=== PATIENT | female | born 1950 | race Caucasian/White ===

== ENCOUNTER 2019-05-05 19:05 | Emergency (ER) | payer OTHER ==
--- OUTSIDE RECORDS SUMMARY | 2019-05-05 19:07 | XMS REPORT | Continuity of Care Document ---
:1950 Author Organization [employer] Information [employer] Care Team Providers Name Role Phone [employer] Unavailable Unavailable Problems No Data Provided for This Section Medications No Data Provided for This Section Allergies, Adverse Reactions, Alerts No Known Medication Allergies Immunizations No Data Provided for This Section Results No Data Provided for This Section Pathology Reports No Data Provided for This Section Diagnostic Reports No Data Provided for This Section Consultation Notes No Data Provided for This Section Discharge Summaries No Data Provided for This Section History and Physicals No Data Provided for This Section Vital Signs No Data Provided for This Section Encounters Location Location Encounter Encounter Reason Attending ADM DC Status Source Details Type Number For Provider Date Date Visit Outpatient [id number] VIET 08/02 Active [facility] [place] Procedures No Data Provided for This Section Assessment and Plan No Data Provided for This Section Plan of Care No Data Provided for This Section Social History No Data Provided for This Section Family History No Data Provided for This Section Advance Directives No Data Provided for This Section Functional Status No Data Provided for This Section
--- OUTSIDE RECORDS SUMMARY | 2019-05-05 19:08 | XMS REPORT ---
:1950 Author Organization [facility] Address [address] Solorzano [address] [place] [id number] Care Team Providers Name Role Phone Unavailable Unavailable Unavailable Payers Payer Name Policy Type Policy Number Effective Date Expiration Date Problems This patient has no known problems. Allergies, Adverse Reactions, Alerts Allergy Allergy Status Severity Reaction(s) Onset Inactive Treating Comments Name Type Date Date Clinician ovidio MONIQUE Active U 2018-10 00:00:0 0 Medications This patient has no known medications.
[2019-05-05] MEDS ORDERED: NA CHLORIDE 0.9% 1,000 ML ONE (20:05)
[2019-05-05 20:21] LABS: Absolute Lymphocytes (CBC) 1.8 K/uL (0.7-4.9); Basophils % 0.5 % (0-1.3); Hematocrit 43.5 % (36.0-45.0); Lymphocytes % 30.2 % (15.3-44.8); MPV 9.2 fL (7.6-11.3); Monocytes % 6.9 % (3.3-12.3); RBC Red Blood Cell Count 4.72 M/uL (3.86-4.86)
[2019-05-05] MEDS ORDERED: ONDANSETRON 4 MG/2 ML VIAL ONE ×2 (20:30→23:04)
[2019-05-05] MEDS ORDERED: MORPHINE 2 MG/ML SYR ONE (20:30)
[2019-05-05 20:37] LABS: Magnesium 1.9 mg/dL (1.8-2.4); NT PRO-BNP 109 pg/mL (<125); Troponin (Emerg Dept Use Only) < 0.02 ng/mL (0.0-0.045)
[2019-05-05 20:39] LABS: Albumin 3.3 g/dL (3.4-5.0); Bilirubin Direct 0.2 mg/dL (0-0.2); Bilirubin Total 0.6 mg/dL (0.2-1.0); Potassium 3.2 mmol/L (3.5-5.1); Protein, Total 6.7 g/dL (6.4-8.2)
--- NOTE | 2019-05-05 20:40 | RAD REPORT ---
EXAM DESCRIPTION: RAD - Chest Single View - 05/05/2019 8:19 pm CLINICAL HISTORY: Syncope, shortness of breath COMPARISON: None. TECHNIQUE: AP portable chest image was obtained 2015 hours . FINDINGS: Lung volumes are low. No mass or consolidation. No failure or volume overload suspected. H eart and vasculature are normal. No measurable pleural effusion and no pneumothorax. No acute bony ab normality seen. No acute aortic findings suspected. IMPRESSION: No acute cardiopulmonary process.
[2019-05-05 20:41] LABS: Protime INR 1.27
[2019-05-05 23:30] LABS: Urine Appearance CLEAR; Urine Bilirubin NEGATIVE (NEG); Urine Blood NEGATIVE (NEG); Urine Color YELLOW; Urine Glucose NEGATIVE (NEG); Urine Protein NEGATIVE (NEG); Urine Specific Gravity >=1.030 (1.005-1.030)
[2019-05-05 23:35] LABS: Urine Microscopic Reflex ORDER UMIC
[2019-05-05 23:47] LABS: Urine Bacteria 20-50 /HPF (<20); Urine Culture Reflex Order REFLEXED; Urine RBC NONE SEEN /HPF (NONE SEEN)
[2019-05-05 23:49] LABS: Urine Blood NEGATIVE (NEG); Urine Glucose NEGATIVE (NEG); Urine Protein NEGATIVE (NEG); Urine Specific Gravity 1.015 (1.005-1.030)
--- NOTE | 2019-05-06 00:22 | ER ---
Nurse's Notes [facility] Name: Thu Boyd Age: 68 yrs Sex: Female : 1950 Arrival Date: 05/05/2019 Time: 19:11 Bed 2 Private MD: Diagnosis: Syncope. Abdominal pain Presentation: 05/05 19:12 Presenting complaint: EMS states: EMS reports upon arrival pt's stated he heard rr5 a scream saw pt grab at her belly and then passed out and landed on the couch. reports pt did not hit head. EMS reported upon arrival pt HR was in the 40s and BP was 80s/50s. 20 G to RAC, IV fluid bolus and toradol for right lower abdominal pain was initiated by EMS. Transition of care: patient was not received from another setting of care. Onset of symptoms was May 05, 2019. Risk Assessment: Do you want to hurt yourself or someone else? Patient reports no desire to harm self or others. Initial Sepsis Screen: Does the patient meet any 2 criteria? No. Patient's initial sepsis screen is negative. Does the patient have a suspected source of infection? No. Patient's initial sepsis screen is negative. Care prior to arrival: 20 G IV to RAC, NS fluid bolus, toradol 30mg IVP. 19:12 Method Of Arrival: EMS: [facility] rr5 19:12 Acuity: HELDER 3 rr5 Triage Assessment: 19:28 General: Appears in no apparent distress. Behavior is calm, cooperative. Pain: Unable rr5 to use pain scale. FLACC scale score is 0 out of 10. Neuro: Level of Consciousness is awake, alert, obeys commands, Oriented to pt aphasic . Reinsurance Claim Analyst are equal bilaterally Moves all extremities. Facial symmetry appears normal. Respiratory: Airway is patent Respiratory effort is even, unlabored, Respiratory pattern is regular, symmetrical. Historical: - Allergies: 19:26 No Known Allergies; rr5 - Home Meds: 19:26 Eliquis oral oral [Active]; "mild statin" [Active]; Prozac Oral [Active]; rr5 - PMHx: 19:26 stroke in 2018; Hypertension; Hyperlipidemia; dysphagia; rr5 - Immunization history:: Adult Immunizations up to date. - Social history:: Smoking status: Patient/guardian denies using tobacco. - Ebola Screening: : No symptoms or risks identified at this time. Screenin:27 Abuse screen: Denies threats or abuse. Nutritional screening: No deficits noted. rr5 Tuberculosis screening: No symptoms or risk factors identified. Fall Risk IV access (20 points). Assessment: 19:41 General: Appears uncomfortable, Behavior is calm, cooperative, quiet. Pain: Complains ea of pain in right lower quadrant. Neuro: Level of Consciousness is awake, alert, obeys commands, Oriented to person, place, time, situation, Reinsurance Claim Analyst are equal bilaterally Moves all extremities. Facial symmetry appears normal. Cardiovascular: Heart tones S1 S2 present Patient's skin is warm and dry. Rhythm is sinus rhythm. Respiratory: Airway is patent Respiratory effort is even, unlabored, Respiratory pattern is regular, symmetrical. GI: Parent/caregiver reports the patient having reports pt has constipation. Derm: Skin is pink, warm \\T\\ dry. 20:50 Reassessment: Patient and/or family updated on plan of care and expected duration. Pain ea level reassessed. Pt resting with eyes closed. Respirations even and unlabored. No s/s of pain or discomfort noted at this time. 22:50 Reassessment: complaints of feeling nauseated. ED provider aware with order made and rr5 carried out. 05/06 00:03 Reassessment: Patient and/or family updated on plan of care and expected duration. Pain ea level reassessed. Awaiting on CT results. 00:28 Reassessment: Patient and/or family updated on plan of care and expected duration. Pain ea level reassessed. Pt awake and alert. Respirations even and unlabored. Chest expansions even and symmetrical. No s/s of pain or discomfort noted at this time. Discharge instruction given to patient's , verbalized the understanding of instruction. Pt left ED via wheelchair with , pt tolerating well. Vital Signs: 05/05 19:27 BP 145 / 63; Pulse 60; Resp 17; Temp 97.7; Pulse Ox 95% ; Weight 81.65 kg; Height 5 ft. rr5 2 in. (157.48 cm); Pain 0/10; 20:30 BP 129 / 60; Pulse 54; Resp 18; Pulse Ox 95% on R/A; ea 21:18 BP 119 / 60; Pulse 58; Resp 18; Pulse Ox 93% ; ea 22:00 BP 125 / 65; Pulse 50; Resp 18; Pulse Ox 96% on R/A; ea 23:00 BP 129 / 57; Pulse 52; Resp 17; Pulse Ox 97% ; rr5 07 00:02 BP 119 / 58; Pulse 63; Resp 16; Pulse Ox 96% ; ea 00:15 BP 121 / 60; Pulse 55; Resp 18; Temp 98; Pulse Ox 98% on R/A; Pain 0/10; ea 05/05 19:27 Body Mass Index 32.92 (81.65 kg, 157.48 cm) rr5 ED Course: 05/05 19:11 Patient arrived in ED. rr5 19:19 Triage completed. rr5 19:28 Patient has correct armband on for positive identification. Bed in low position. Call rr5 light in reach. Side rails up X2. 19:28 Arm band placed on right wrist. Patient placed in an exam room, on a stretcher, on rr5 pulse oximetry. 19:31 Tom Jacobs MD is Attending Physician. pkl 19:34 Teressa Esposito RN is Primary Nurse. ea 20:21 XRAY Chest (1 view) In Process Unspecified. EDMS 22:[address] nj 22:24 CT Head Brain wo Cont In Process Unspecified. EDMS 22:27 CT Abd/Pelvis - PO and IV Contrast In Process Unspecified. EDMS 07 00:30 No provider procedures requiring assistance completed. IV discontinued, intact, ea bleeding controlled, No redness/swelling at site. Pressure dressing applied. Administered Medications: 05/05 19:58 Drug: NS 0.9% 1000 ml Route: IV; Rate: 100 ml/hr; Site: right antecubital; ea 05/06 00:25 Follow up: Response: No adverse reaction; IV Status: Completed infusion; IV Intake: ea 400ml 05/05 20:24 Drug: Zofran 4 mg Route: IVP; Site: right antecubital; ea 21:21 Follow up: Response: No adverse reaction; Marked relief of symptoms ea 20:26 Drug: morphine 2 mg Route: IVP; Site: right antecubital; ea 21:21 Follow up: Response: No adverse reaction; Pain is decreased ea 22:55 Drug: Zofran 4 mg Route: IVP; Site: right antecubital; rr5 07/06 00:06 Follow up: Response: No adverse reaction; Nausea is decreased ea 00:21 Drug: Potassium Chloride 40 mEq Route: PO; ea 00:33 Follow up: Response: Medication administered at discharge. ea Point of Care Testing: Blood Glucose: 05/05 19:43 Blood Glucose: 138 mg/dL; ea Ranges: Intake: 05/06 00:25 IV: 400ml; Total: 400ml. ea Outcome: 00:19 Discharge ordered by . jael 00:31 Discharged to home via wheelchair, with significant other. ea 00:31 Condition: stable 00:31 Discharge instructions given to family, Instructed on discharge instructions, follow up and referral plans. Demonstrated understanding of instructions, follow-up care. 00:32 Patient left the ED. ea Signatures: Dispatcher [employer] EDTom Scott MD MD pkl Jordan, Nathan nj Antunez, Elena RN RN Dakota Kirby RN RN rr5
--- NOTE | 2019-05-06 00:24 | EDPHYS ---
Physician Documentation [facility] Name: Thu Boyd Age: 68 yrs Sex: Female : 1950 Arrival Date: 05/05/2019 Time: 19:11 Bed 2 Private MD: ED Physician Tom Jacobs HPI: 05/05 19:46 This 68 yrs old Female presents to ER via EMS with complaints of Syncope. pkl 19:46 The patient has experienced syncope, became unresponsive. Onset: The symptoms/episode pkl began/occurred just prior to arrival. Associated injury: The patient did not suffer any apparent associated injury. Associated signs and symptoms: Pertinent positives: abdominal pain. Patient complained of right lower quadrant pain since this morning. said patient screamed and grab her right lower quadrant before passing out for about 10 mins. Patient has residual aphasia from previous stroke in 2017. Historical: - Allergies: 19:26 No Known Allergies; rr5 - Home Meds: 19:26 Eliquis oral oral [Active]; "mild statin" [Active]; Prozac Oral [Active]; rr5 - PMHx: 19:26 stroke in 2018; Hypertension; Hyperlipidemia; dysphagia; rr5 - Immunization history:: Adult Immunizations up to date. - Social history:: Smoking status: Patient/guardian denies using tobacco. - Ebola Screening: : No symptoms or risks identified at this time. ROS: 19:46 Eyes: Negative for injury, pain, redness, and discharge, ENT: Negative for injury, pkl pain, and discharge, Neck: Negative for injury, pain, and swelling, Cardiovascular: Negative for chest pain, palpitations, and edema, Respiratory: Negative for shortness of breath, cough, wheezing, and pleuritic chest pain. 19:46 Abdomen/GI: Positive for abdominal pain, of the right lower quadrant. 19:46 Back: Negative for acute changes. 19:46 : Negative for urinary symptoms. 19:46 MS/extremity: Negative for acute changes. 19:46 Skin: Negative for rash. 19:46 Neuro: Positive for syncope. Exam: 19:46 Abdomen/GI: Bowel sounds: normal, Palpation: soft, moderate abdominal tenderness, in pkl the right lower quadrant. 19:46 Head/Face: Normocephalic, atraumatic. Eyes: Pupils equal round and reactive to light, extra-ocular motions intact. Lids and lashes normal. Conjunctiva and sclera are non-icteric and not injected. Cornea within normal limits. Periorbital areas with no swelling, redness, or edema. ENT: Nares patent. No nasal discharge, no septal abnormalities noted. Tympanic membranes are normal and external auditory canals are clear. Oropharynx with no redness, swelling, or masses, exudates, or evidence of obstruction, uvula midline. Mucous membranes moist. Neck: Trachea midline, no thyromegaly or masses palpated, and no cervical lymphadenopathy. Supple, full range of motion without nuchal rigidity, or vertebral point tenderness. No Meningismus. Chest/axilla: Normal chest wall appearance and motion. Nontender with no deformity. No lesions are appreciated. Cardiovascular: Regular rate and rhythm with a normal S1 and S2. No gallops, murmurs, or rubs. Normal PMI, no JVD. No pulse deficits. Respiratory: Lungs have equal breath sounds bilaterally, clear to auscultation and percussion. No rales, rhonchi or wheezes noted. No increased work of breathing, no retractions or nasal flaring. Back: No spinal tenderness. No costovertebral tenderness. Full range of motion. Skin: Warm, dry with normal turgor. Normal color with no rashes, no lesions, and no evidence of cellulitis. MS/ Extremity: Pulses equal, no cyanosis. Neurovascular intact. Full, normal range of motion. 19:46 Neuro: Orientation: appropriate for stated age, Mentation: is normal, Cranial nerves: grossly normal, Motor: moves all fours. Vital Signs: 19:27 BP 145 / 63; Pulse 60; Resp 17; Temp 97.7; Pulse Ox 95% ; Weight 81.65 kg; Height 5 ft. rr5 2 in. (157.48 cm); Pain 0/10; 20:30 BP 129 / 60; Pulse 54; Resp 18; Pulse Ox 95% on R/A; ea 21:18 BP 119 / 60; Pulse 58; Resp 18; Pulse Ox 93% ; ea 22:00 BP 125 / 65; Pulse 50; Resp 18; Pulse Ox 96% on R/A; ea 23:00 BP 129 / 57; Pulse 52; Resp 17; Pulse Ox 97% ; rr5 07/06 00:02 BP 119 / 58; Pulse 63; Resp 16; Pulse Ox 96% ; ea 00:15 BP 121 / 60; Pulse 55; Resp 18; Temp 98; Pulse Ox 98% on R/A; Pain 0/10; ea 05/05 19:27 Body Mass Index 32.92 (81.65 kg, 157.48 cm) rr5 MDM: 05/05 19:31 Patient medically screened. pkl 05/06 00:14 Data reviewed: vital signs, nurses notes, lab test result(s), EKG, radiologic studies, pkl CT scan, plain films. ED course: Discussed lab. and CT Scans results with patient and . Patient feeling better. Advised to follow up with her PCP and [facility] in 2 to 3 days. Advised to return if necessary. Patient and understood instructions. 05/05 19:34 Order name: Basic Metabolic Panel 05/05 19:34 Order name: CBC with Diff; Complete Time: 00:08 05/05 19:34 Order name: Creatinine for Radiology; Complete Time: 00:08 05/05 19:34 Order name: Hepatic Function; Complete Time: 00:08 05/05 19:34 Order name: Lipase; Complete Time: 00:08 05/05 19:44 Order name: Magnesium; Complete Time: 00:08 pk 05/05 19:44 Order name: NT PRO-BNP; Complete Time: 00:08 pk 05/05 19:44 Order name: PT-INR; Complete Time: 00:08 pk 05/05 19:44 Order name: Troponin (emerg Dept Use Only); Complete Time: 00:08 pk 05/05 20:01 Order name: Basic Metabolic Panel; Complete Time: 00:08 EDNY 05/05 20:04 Order name: UA; Complete Time: 00:08 pk 05/05 23:37 Order name: Urine Microscopic Only; Complete Time: 00:08 EDNY 05/05 23:38 Order name: Urine Dipstick--Ancillary (enter results); Complete Time: 00:08 cm6 05/05 23:49 Order name: Urine Culture [facility] 05/05 19:34 Order name: IV Saline Lock; Complete Time: 23:33 ea 05/05 19:34 Order name: Labs collected and sent; Complete Time: 23:33 05/05 19:44 Order name: XRAY Chest (1 view); Complete Time: 00:08 pkl 05/05 19:44 Order name: EKG; Complete Time: 20:05 pkl 05/05 19:44 Order name: Cardiac monitoring; Complete Time: 19:47 pkl 05/05 19:44 Order name: EKG - Nurse/Tech; Complete Time: 19:47 pkl 05/05 19:44 Order name: O2 Per Protocol; Complete Time: 19:47 pkl 05/05 19:44 Order name: O2 Sat Monitoring; Complete Time: 19:47 pkl 05/05 19:45 Order name: CT Abd/Pelvis - PO and IV Contrast pkl 05/05 19:45 Order name: CT Head Brain wo Cont pkl Administered Medications: 05/05 19:58 Drug: NS 0.9% 1000 ml Route: IV; Rate: 100 ml/hr; Site: right antecubital; ea 05/06 00:25 Follow up: Response: No adverse reaction; IV Status: Completed infusion; IV Intake: ea 400ml 05/05 20:24 Drug: Zofran 4 mg Route: IVP; Site: right antecubital; ea 21:21 Follow up: Response: No adverse reaction; Marked relief of symptoms ea 20:26 Drug: morphine 2 mg Route: IVP; Site: right antecubital; ea 21:21 Follow up: Response: No adverse reaction; Pain is decreased ea 22:55 Drug: Zofran 4 mg Route: IVP; Site: right antecubital; rr5 05/06 00:06 Follow up: Response: No adverse reaction; Nausea is decreased ea 00:21 Drug: Potassium Chloride 40 mEq Route: PO; ea 00:33 Follow up: Response: Medication administered at discharge. ea Point of Care Testing: Blood Glucose: 05/05 19:43 Blood Glucose: 138 mg/dL; ea Ranges: Critical Glucose Levels:Adult <50 mg/dl or >400 mg/dl <40 mg/dl or >180 mg/dl Disposition: 05/06/19 00:19 Discharged to Home. Impression: Syncope. Abdominal pain. - Condition is Stable. - Medication Reconciliation Form, Thank You Letter, Antibiotic Education, Prescription Opioid Use form. - Follow up: Private Physician; When: 2 - 3 days; Reason: Re-evaluation by your physician. - Problem is new. - Symptoms have improved. Signatures: Dispatcher [employer] Tom Schroeder MD MD pkl Teressa Esposito, RN RN Dakota Kirby RN RN rr5 Corrections: (The following items were deleted from the chart) 05/06 00:32 00:19 05/06/2019 00:19 Discharged to Home. Impression: Syncope. Abdominal pain. ea Condition is Stable. Forms are Medication Reconciliation Form, Thank You Letter, Antibiotic Education, Prescription Opioid Use. Follow up: Private Physician; When: 2 - 3 days; Reason: Re-evaluation by your physician. Problem is new. Symptoms have improved. pkl
[2019-05-06] MEDS ORDERED: POTASSIUM CL SA 10 MEQ TAB PO ONE (00:31)
--- NOTE | 2019-05-06 07:19 | EKG ---
Test Date: 2019-05-05 Test Time: 19:14:48 Motor Vehicle Examiner: QUENTIN MEASUREMENT RESULTS: Intervals: Rate: 60 MD: 202 QRSD: 86 QT: 408 QTc: 408 [place]: P: -11 MD: 202 QRS: 22 T: 25 INTERPRETIVE STATEMENTS: Normal sinus rhythm with sinus arrhythmia Normal ECG No previous ECG available for comparison Electronically Signed On 05-06-19 07:18:26 CDT by Bryson Cuellar
--- NOTE | 2019-05-08 12:31 | RAD REPORT ---
EXAM DESCRIPTION: Head Brain Wo Cont CLINICAL HISTORY: 68 years Female SYNCOPE COMPARISON: None TECHNIQUE: Images were obtained in axial, sagittal, and coronal planes. This exam was performed according to our departmental dose-optimization program which includes use of Automated Exposure Control, adjustment of the mA and/or kV according to patient size and/or use of i terative reconstruction technique. FINDINGS: Wedge-shaped decreased attenuation left frontal temporal region consistent with more remot e infarct and encephalomalacia. Additional wedge-shaped decreased attenuation left posterior parietal lobe also consistent with more remote infarct and encephalomalacia. Compensatory enlargement left la teral ventricle. No abnormal areas of increased attenuation seen. No extra-axial fluid collections noted. Hyperostosis frontalis. Unremarkable paranasal sinuses. No evidence for skull fracture. Symmetric aer ation mastoid air cells bilaterally. IMPRESSION: More remote infarct and encephalomalacia left frontal temporal and posterior parietal re gions. No acute intracranial abnormality. No evidence for hemorrhage, mass lesion, or large acute infarction . Electronically signed by: Tana Joseph MD 05/05/2019 10:30 PM CDT Due to temporary technical issues with the PACS/Fluency reporting system, reports are being signed by the in house radiologist as a courtesy to ensure prompt reporting. The interpreting radiologist is f ully responsible for the content of the report.
--- NOTE | 2019-05-08 12:33 | RAD REPORT ---
EXAM DESCRIPTION: Abdomen Pelvis W Contrast CLINICAL HISTORY: Abdominal pain TECHNIQUE: CT scan of the abdomen and pelvis was performed with oral and intravenous contrast. 5 mm axial images were obtained along with coronal and sagittal reformatted images. DOSE OPTIMIZATION: This facility uses dose optimization techniques as appropriate to perform exams, including at least one of the following techniques: 1. Automated exposure control. 2. Adjustment of the mA and/or kV according to patient size (this includes techniques or standardized protocols for targeted exams where dose is matched to the indication/reason for exam, i.e. extremiti es or head). 3. Use of iterative reconstructive technique. INTRAVENOUS CONTRAST: Not documented ORAL CONTRAST: Not documented. COMPARISON: None. FINDINGS: Lung Bases: There is mild bibasilar atelectasis. Liver: There is mild intrahepatic and extrahepatic biliary ductal dilatation associated with previous cholecystectomy. Spleen: Normal. Pancreas: Normal. Gallbladder: Absent Adrenal Glands: Normal. Kidneys: Normal. Retroperitoneal Structures: There is moderately severe atherosclerotic disease about the abdominal ao rta and iliac arteries. Bowel Survey: There is a moderate amount residual stool within the ascending, transverse, and sigmoid colon. The distal ileum is unremarkable. The appendix is unremarkable.. There is moderately severe k yphosis of the sigmoid colon. Uterus and Adnexa: Absent Urinary Bladder: Obscured by beam hardening artifact associated with hardening artifact associated bi lateral hip prosthesis Peritoneal Cavity: Normal. Mesenteric Structures: Normal. Abdominal Wall: No hernia. Bony Structures: No suspicious lesions. IMPRESSION: 1. Moderate amount of residual stool within the ascending, transverse, and sigmoid colon . PQRS: [id number] Electronically signed by: Marcello Iqbal MD 05/05/2019 11:22 PM CDT Due to temporary technical issues with the PACS/Fluency reporting system, reports are being signed by the in house radiologist as a courtesy to ensure prompt reporting. The interpreting radiologist is f ully responsible for the content of the report.
== END 2019-05-06 00:32 | disposition home or self-care (01) ==
LOC: ER 19:05
DX: R55 Syncope and collapse (principal); R10.9 Unspecified abdominal pain; I10 Essential (primary) hypertension; E78.5 Hyperlipidemia, unspecified; Z79.01 Long term (current) use of anticoagulants
CPT/HCPCS: 96361; 93005; 87088; 85025; 87086; 80048; 36415; 83735; 85610; 82962; 80076; 84484; 83690; 83880; 70450; 74177; 71045; 96375; 96374; 99285; Q9967; J2270; J7030; J2405 ×2; 81003; 81015

== ENCOUNTER 2019-05-08 17:50 | Emergency (ER) | payer OTHER ==
--- OUTSIDE RECORDS SUMMARY | 2019-05-08 17:54 | XMS REPORT | Continuity of Care Document ---
:1950 Author Organization [employer] Information [employer] Care Team Providers Name Role Phone [employer] Unavailable Unavailable Problems No Data Provided for [...] Number For Provider Date Date Visit Outpatient [id number] VIET 08/02 Active [facility] [place] Procedures No Data Provided for This Section [...]
--- OUTSIDE RECORDS SUMMARY | 2019-05-08 17:54 | XMS REPORT ---
:1950 [facility] Address [address] Solorzano [address] [place] [id number] Care Team Providers Name Role Phone Unavailable [...]
[2019-05-08 18:16] LABS: Absolute Lymphocytes (CBC) 2.1 K/uL (0.7-4.9); Basophils % 0.6 % (0-1.3); Eosinophils % 2.6 % (0-4.4); Hematocrit 45.7 % (36.0-45.0); Lymphocytes % 31.8 % (15.3-44.8); MPV 9.1 fL (7.6-11.3); Monocytes % 6.1 % (3.3-12.3); RBC Red Blood Cell Count 4.97 M/uL (3.86-4.86)
--- NOTE | 2019-05-08 18:18 | RAD REPORT ---
EXAM DESCRIPTION: CT - Ct Stroke Brain Wo Cont - 05/08/2019 6:10 pm CLINICAL HISTORY: aphasia COMPARISON: May 05, 2019 TECHNIQUE: Computed axial tomography of the head was obtained. All CT scans are performed using dose optimization technique as appropriate and may include automated exposure control or mA/KV adjustment according to patient size. FINDINGS: An intracranial bleed is not seen . The ventricles are normal in caliber. No extra-axial fluid collection is noted. Large area of cystic encephalomalacia involves the left cerebrum consistent with old infarction Fluid within the sinuses/ mastoids is not seen. IMPRESSION: No acute intracranial abnormality is seen. If patient's symptoms persist MRI of the bra in would be recommended. Dr Ac of the emergency room was notified at 6:10 p.m. May 08, 2019
[2019-05-08 18:19] LABS: Protime INR 1.2
[2019-05-08 18:33] LABS: BUN Blood Urea Nitrogen 17 mg/dL (7-18); Bicarbonate 28 mmol/L (21-32); Glucose Level 132 mg/dL (74-106); Potassium 3.2 mmol/L (3.5-5.1); Sodium Level 140 mmol/L (136-145); Troponin (Emerg Dept Use Only) < 0.02 ng/mL (0.0-0.045)
[2019-05-08] MEDS ORDERED: LORazepam 2 MG/ML VIAL ONE ×2 (18:44→19:48)
[2019-05-08] MEDS ORDERED: LEVETIRACETAM 500 MG/5 ML VIAL IV ONE (18:57)
[2019-05-08] MEDS ORDERED: NA CHLORIDE 0.9% 100 ML IV ONE (18:57)
--- NOTE | 2019-05-08 19:55 | RAD REPORT ---
EXAM DESCRIPTION: Colten Angio05/08/2019 7:43 pm CLINICAL HISTORY: cva COMPARISON: None TECHNIQUE: 50 cc Isovue 370 was administered intravenously. 3D MIP reconstruction performed All CT scans are performed using dose optimization technique as appropriate and may include automated exposure control or mA/KV adjustment according to patient size. FINDINGS: Mild plaque is present within the internal carotid arteries bilaterally. Common carotid a nd external carotid arteries unremarkable. Right vertebral artery is a little bit more dominant than the left. No significant stenosis Carotid and vertebral arteries are tortuous IMPRESSION: Mild stenosis within the carotid arteries NASCET criteria used. Mild 0-49% stenosis Moderate 50-69% stenosis Severe 70-99% stenosis
--- NOTE | 2019-05-08 20:01 | RAD REPORT ---
EXAM DESCRIPTION: CTHead angio05/08/2019 7:42 pm CLINICAL HISTORY: CVA COMPARISON: None TECHNIQUE: CT angiogram of the head was obtained. 3D MIPS reconstruction performed. All CT scans are performed using dose optimization technique as appropriate and may include automated exposure control or mA/KV adjustment according to patient size. FINDINGS: The basilar, internal carotid, anterior cerebral, right middle cerebral and posterior cere bral arteries are normal caliber. An aneurysm is not seen. origin left posterior cerebral artery Diminished flow within left middle cerebral arterial branches IMPRESSION: Diminished flow within the left middle cerebral arterial branches related to old infarct ion No acute abnormality seen
--- NOTE | 2019-05-08 20:02 | RAD REPORT ---
EXAM DESCRIPTION: [place] Single View05/08/2019 7:01 pm CLINICAL HISTORY: Chest pain COMPARISON: May 05, 2019 FINDINGS: Patient is in a poor degree of inspiration resulting in crowding of the pulmonary vessels Lungs probably are clear of acute infiltrate Heart is normal size
--- NOTE | 2019-05-08 20:20 | ER ---
Nurse's Notes [facility] Name: Thu Boyd Age: 68 yrs Sex: Female : 1950 Arrival Date: 05/08/2019 Time: 18:03 Bed 14 Private MD: Diagnosis: Epilepsy and recurrent seizures;Cerebral infarction Presentation: 05/08 17:45 Presenting complaint: EMS states: reports that patient was sitting down, when ss he came back out of restroom, patient had a sudden onset of R sided weakness and was lethargic/ slumped over. Patient has a history of aphasia from previous CVA. Transition of care: patient was not received from another setting of care. An acute neurological deficit is present. The patients blood glucose was checked before arriving to the hospital and was found to be normal. Onset of symptoms was May 08, 2019 at 17:15. Risk Assessment: Do you want to hurt yourself or someone else? Unable to obtain. Initial Sepsis Screen: Does the patient meet any 2 criteria? No. Patient's initial sepsis screen is negative. Does the patient have a suspected source of infection? No. Patient's initial sepsis screen is negative. Care prior to arrival: IV initiated. 20 GA, in the right forearm, Glucose check: 106. 17:45 Method Of Arrival: EMS: [facility] 17:45 Acuity: HELDER 2 ss Triage Assessment: 18:22 The onset of the patients symptoms was May 08, 2019 at 17:15. General: Appears bp distressed, comfortable, obese, Behavior is inappropriate for age. Pain: Denies pain. EENT: No deficits noted. Neuro: Reports weakness in R SIDED DYSPHASIA AND SLURRED SPEECH. Cardiovascular: No deficits noted. Respiratory: No deficits noted. GI: No signs and/or symptoms were reported involving the gastrointestinal system. : No signs and/or symptoms were reported regarding the genitourinary system. Derm: No deficits noted. Musculoskeletal: R SIDED WEAKNESS. Stroke Activation: Symptom onset < 3 hours Physician: Stroke Attending; Name: ; Notified At: ; Arrived At: Physician: Chief Stroke Resident; Name: ; Notified At: ; Arrived At: Physician: Stroke Resident; Name: ; Notified At: ; Arrived At: Physician: ED Attending; Name: ; Notified At: ; Arrived At: Physician: ED Resident; Name: ; Notified At: ; Arrived At: Historical: - Allergies: 18:18 No Known Allergies; ss - Home Meds: 18:18 Prozac Oral [Active]; Eliquis Oral [Active]; "mild statin" [Active]; bp - PMHx: 18:18 DYSPHAGIA; Hyperlipidemia; Hypertension; stroke in 2018; Aphasia; ss - Immunization history:: Adult Immunizations up to date. - Social history:: Smoking status: Patient/guardian denies using tobacco, but has a distant history of tobacco abuse. - Ebola Screening: : Patient denies exposure to infectious person Patient denies travel to an Ebola-affected area in the 21 days before illness onset. Screenin:19 VAN Screening:. The patient is not alert, or is unable to follow commands. Bedside ss swallow screening discontinued. Patient kept NPO until cleared by Speech Therapy or Physician. The patient is exhibiting difficulty speaking. 18:25 Abuse screen: Denies threats or abuse. Denies injuries from another. Nutritional bp screening: No deficits noted. Tuberculosis screening: No symptoms or risk factors identified. Fall Risk No fall in past 12 months (0 pts). No secondary diagnosis (0 pts). IV access (20 points). Ambulatory Aid- None/Bed Rest/Nurse Assist (0 pts). Gait- Weak (10 pts.). Mental Status- Overestimates/Forgets Limitations (15 pts.). Total Richey Fall Scale indicates Low Risk Score (25-44 pts). Fall prevention measures have been instituted. Side Rails Up X 2 Placed close to Nursing Station Frequent Obs/Assesments occuring Family Present and informed to notify staff if they need to leave bedside As available Patient and Family Educated on Fall Prevention Program and strategies. Assessment: 17:45 Reassessment: Emelia No Called. Patient straight to CT upon arrival to ED. ss 17:45 VAN Scoring: Arm Drift: Severe drift Visual Disturbance: No visual disturbance noted. bp Aphasia: Patient exhibits both expressive and receptive aphasia. Provider notified of +VAN scoring. Neglect: No neglect noted. The patient has not been NPO before screening. The patient is not alert and/or unable to follow commands. Bedside swallow screen discontinued. Patient kept NPO until cleared by Speech Therapy or Physician. The patient failed the bedside swallow screening. The patient will be kept NPO until cleared by Speech Therapy or Physician. Provider notified of bedside swallow screening results: Teddy Ac MD. 17:45 T-PA (Activase) Screening: Indications: Definite evidence of stroke, ischemic, embolic, ss or hypertensive: Yes. Treatment will start within 4.5 hours onset of symptoms: Yes. 17:55 Reassessment: Back in exam room. Dr. Ac at bedside assessing patient. also ss at bedside who states, "It almost looked like when I got out of the room that she was trying to swallow her tongue. When I tried to pull it back out of her mouth I felt as if she was doing better. I don't know.". 17:55 Reassessment: 1745. NIHSS completed on patients own ability to perform task. Patient is ss unable to perform some tasks needed to appropriately assess NIHSS completely. 18:25 Reassessment: FULL TONIC CLONIC ACTIVITY NOTED WITH R GAZE DEVIATION. NOTIFIED AND bp AT B/S. SZ S/S LASTED \\R\\4-5 MINUTES. NRB PLACED. 18:28 Reassessment: Patient observed by Mookie Goodman RN to be having a seizure. Dr. Ac ss notified. NRB placed. 18:30 Reassessment: Ativan 1 mg administered IVP as ordered. Patient has stopped seizing and ss is observed to be post ictal at this time. BP 203/79. No new orders or interventions received at this time. Transfer to [facility] has been initiated. Family notified on plan of care. 18:46 T-PA (Activase) Screening: Indications: Treatment will start within 4.5 hours onset of bp symptoms: Yes. No evidence of intracranial hemorrhage or CT of head and no evidence of peripheral hemorrhage or recent CVA: Yes. Contraindications: Is the patient on Aspirin, Heparin, or Warfarin: No. Blood pressure is more than 185/110: Yes. Seizure at onset of stroke or other uncontrolled chronic seizure disorder: Yes. Is the patient on a "statin" medication: Yes. 19:11 General: Appears comfortable, well groomed, well nourished, Behavior is drowsy, quiet. jd3 Pain: Unable to use pain scale. Patient is disoriented. FLACC scale score is 0 out of 10. Neuro: Level of Consciousness is lethargic, post ictal, Oriented to none [employer] Supervisor are does not attempt to squeeze . post ictal state. does not attempt to raise arms. purposeful movement to rub neck noted.. Speech with expressive aphasia noted, Facial symmetry appears normal, pupils equal and reactive to light.. Seizure activity Patient is post-ictal at this time. Cardiovascular: Heart tones S1 S2 present Capillary refill < 3 seconds Patient's skin is warm and dry. Rhythm is regular. Respiratory: Airway is patent Respiratory effort is even, unlabored, Respiratory pattern is regular, symmetrical, Breath sounds are clear bilaterally. GI: Abdomen is round non-distended, obese, Bowel sounds present X 4 quads. Abd is soft and non tender X 4 quads. Patient currently denies diarrhea, nausea, vomiting. : No signs and/or symptoms were reported regarding the genitourinary system. EENT: No signs and/or symptoms were reported regarding the EENT system. Derm: Skin is intact, Skin is dry, Skin is normal, Skin temperature is warm. 19:37 Reassessment: CT reporting pt with restlessness on the CT bed. provider ordered 1 mg jd3 Ativan, See MAR. 19:45 Reassessment: pt's reported he is going home for the night. : Nicanor jacob [place]- [phone]. 19:52 Reassessment: Patient appears in no apparent distress at this time. Patient and/or [facility] family updated on plan of care and expected duration. Pain level reassessed. awaiting results of CTA and disposition. pt with even and unlabored respirations, pt is post ictal, appears drowsy. spontaneous eye opening and purposeful movement noted with rubbing neck. pt opening eyes on command. 20:43 Reassessment: Patient appears in no apparent distress at this time. No changes from jd3 previously documented assessment. Patient and/or family updated on plan of care and expected duration. Pain level reassessed. report given to Bekah OSWALD at [facility]. 20:59 Reassessment: Patient appears in no apparent distress at this time. No changes from jd3 previously documented assessment. Patient and/or family updated on plan of care and expected duration. Pain level reassessed. report given to EMS. Vital Signs: 18:03 BP 158 / 91; Pulse 87; Resp 18; Temp 97.7(TE); Pulse Ox 95% on R/A; Weight 81.65 kg; ss Height 5 ft. 2 in. (157.48 cm); 18:53 BP 184 / 115; Pulse 83; Resp 19; Pulse Ox 100% on 15% Non-rebreather mask; bp 19:27 BP 158 / 80; Pulse 72; Resp 17 S; Pulse Ox 100% on 15% Non-rebreather mask; jd3 19:58 BP 157 / 71; Pulse 71; Resp 17 S; Pulse Ox 99% on 2 lpm NC; jd3 21:00 BP 143 / 73; Pulse 71; Resp 17 S; Pulse Ox 97% on 2 lpm NC; jd3 18:03 Body Mass Index 32.92 (81.65 kg, 157.48 cm) ss [place] Coma Score: 19:25 Eye Response: to pain(2). Verbal Response: inappropriate words(3). Motor Response: jd3 localizes pain(5). Total: 10. 19:58 Eye Response: to voice(3). Verbal Response: inappropriate words(3). Motor Response: jd3 localizes pain(5). Total: 11. 21:00 Eye Response: to voice(3). Verbal Response: inappropriate words(3). Motor Response: jd3 localizes pain(5). Total: 11. NIH Stroke Scale Scores: 17:45 NIHSS Score: 15 ss 18:24 NIHSS Score: 19 ED Course: 17:45 CT Stroke Brain w/o Contrast In Process Unspecified. ss 18:01 Inserted saline lock: 22 gauge in left antecubital area, using aseptic technique. Blood ss collected. 18:01 Maintain EMS IV. Dressing intact. Good blood return noted. Site clean \\T\\ dry. Gauge \\T\\ ss site: 20 gauge in R FA. Patient maintains SpO2 saturation greater than 95% on room air. 18:03 Patient arrived in ED. bp 18:07 Teddy Ac MD is Attending Physician. gs 18:16 Triage completed. ss 18:18 Mookie Goodman, RN is Primary Nurse. bp 18:19 Patient has correct armband on for positive identification. Bed in low position. Call ss light in reach. Side rails up X2. court recording monitor on. Pulse ox on. NIBP on. 18:28 EKG done, by ED staff, reviewed by Teddy Ac MD. 5 19:08 Stroke CXR 1 View In Process Unspecified. EDMS 19:10 Report received from Mookie OSWALD. jd3 19:[address] nj 19:43 Head angio In Process Unspecified. EDMS 19:43 Neck Angio In Process Unspecified. EDMS 21:01 No provider procedures requiring assistance completed. Patient transferred, IV remains jd3 in place. 21:02 Arm band placed on. jd3 Administered Medications: 18:30 Drug: Ativan 1 mg Route: IVP; Site: right forearm; ss 18:44 Follow up: Response: Marked relief of symptoms bp 18:48 Drug: Keppra 1000 mg Route: IV; Rate: calculated rate; Site: right forearm; aj 19:11 Follow up: Response: No adverse reaction; IV Status: Completed infusion jd3 19:37 Drug: Ativan 1 mg Route: IVP; Site: left antecubital; jd3 20:10 Follow up: Response: No adverse reaction jd3 Point of Care Testing: Blood Glucose: 18:03 Blood Glucose: 145 mg/dL; ss Ranges: Outcome: 20:19 ER care complete, transfer ordered by . 21:01 Transferred by ground EMS to [facility], Transfer form completed. jd3 X-rays sent w/ patient. Note: report given to Bekah OSWALD at [facility], and EMS for transportation. 21:01 Condition: stable 21:01 Instructed on the need for transfer. 21:03 Patient left the ED. jd3 NIH Stroke Scale - NIH Stroke Score Date: 05/08/2019 Time: 17:45 Total Score = 15 1a. Level of Consciousness (LOC) - 1(Not Alert) 1b. Level of Consciousness (LOC) (Year \\T\\ Age) - 2(Neither) 1c. LOC Commands (Open \\T\\ Closes Eyes/Ribbon Blocker) - 0(Both) 2. Best Gaze (Lateral Gaze Paresis) - 1(Partial gaze palsy) 3. Visual Field Loss - 0(No visual loss) 4. Facial Palsy - 1(Minor Paralysis) 5a. Left Arm: Motor (10-second hold) - 0(No drift) 5b. Right Arm: Motor (10-second hold) - 3(No effort against gravity) 6a. Left Leg: Motor (5-second hold - always test supine) - 0(No drift) 6b. Right Leg: Motor (5-second hold - always test supine) - 2(Drift, some effort against gravity) 7. Limb Ataxia (finger/nose \\T\\ heel/sevilla - test with eyes open) - 0(Absent) 8. Sensory Loss (pinprick arms/legs/face) - 1(Mild to moderate loss) 9. Best Language: Aphasia (description/naming/reading) - 2(Severe aphasia) 10. Dysarthria (speech clarity - read or repeat words) - 2(Severe) 11. Extinction and Inattention (visual/tactile/auditory/spatial/personal) - 0(No abnormality) Initials: NIH Stroke Scale - NIH Stroke Score Date: 05/08/2019 Time: 18:24 Total Score = 19 1a. Level of Consciousness (LOC) - 1(Not Alert) 1b. Level of Consciousness (LOC) (Year \\T\\ Age) - 2(Neither) 1c. LOC Commands (Open \\T\\ Closes Eyes/Ribbon Blocker) - 2(Neither) 2. Best Gaze (Lateral Gaze Paresis) - 0(Normal) 3. Visual Field Loss - 0(No visual loss) 4. Facial Palsy - 1(Minor Paralysis) 5a. Left Arm: Motor (10-second hold) - 1(Drift) 5b. Right Arm: Motor (10-second hold) - 2(Drift, some effort against gravity) 6a. Left Leg: Motor (5-second hold - always test supine) - 2(Drift, some effort against gravity) 6b. Right Leg: Motor (5-second hold - always test supine) - 3(No effort against gravity) 7. Limb Ataxia (finger/nose \\T\\ heel/sevilla - test with eyes open) - 1(Present in one limb) 8. Sensory Loss (pinprick arms/legs/face) - 0(Normal) 9. Best Language: Aphasia (description/naming/reading) - 2(Severe aphasia) 10. Dysarthria (speech clarity - read or repeat words) - 2(Severe) 11. Extinction and Inattention (visual/tactile/auditory/spatial/personal) - 0(No abnormality) Initials: Signatures: Dispatcher [employer] EDMaye Navarro RN RN aj Smirch, Shelby, RN RN ss Jordan, Nathan nj Martinez, Maria Teddy Banks MD MD Jose Manuel Babra RN RN jMookie Ma RN RN bp Corrections: (The following items were deleted from the chart) 18:17 17:45 Presenting complaint: EMS states: reports that patient was ss sitting down, when he came back out of restroom, patient had a sudden onset of R sided weakness and was lethargic/ slumped over. Patient has a history of aphagia from previous CVA ss 18:24 18:23 Reassessment: 1745 Code [place] Called. Patient straight to CT upon arrival ss to ED. ss 18:26 18:[address]-STROKE BRAIN W/O CONTRAST+CT.RAD.IBANZ. EDMS ss 19:58 19:52 Reassessment: Patient appears in no apparent distress at this time. No jd3 changes from previously documented assessment. Patient and/or family updated on plan of care and expected duration. Pain level reassessed. awaiting results of CTA. pt with even and unlabored respirations, pt is postictal jd3 20:13 19:27 BP 158 / 80; Pulse 72bpm; Resp 17bpm; Spontaneous; Pulse Ox 100% RA; jd3 jd3 20:13 19:58 BP 157 / 71; Pulse 71bpm; Resp 17bpm; Spontaneous; Pulse Ox 99% RA; jd3 jd3 20:27 19:52 Reassessment: Patient appears in no apparent distress at this time. No jd3 changes from previously documented assessment. Patient and/or family updated on plan of care and expected duration. Pain level reassessed. awaiting results of CTA and disposition. pt with even and unlabored respirations, pt is postictal. spontaneous eye opening and purposeful movement noted with rubbing neck. pt opening eyes on command. jd3 20:44 19:52 Reassessment: Patient appears in no apparent distress at this time. No jd3 changes from previously documented assessment. Patient and/or family updated on plan of care and expected duration. Pain level reassessed. awaiting results of CTA and disposition. pt with even and unlabored respirations, pt is post ictal, appears drowsy. spontaneous eye opening and purposeful movement noted with rubbing neck. pt opening eyes on command. jd3 20:44 20:43 Reassessment: Patient appears in no apparent distress at this time. No jd3 changes from previously documented assessment. Patient and/or family updated on plan of care and expected duration. Pain level reassessed. report given to Bekah OSWALD at [facility]. jd3
--- NOTE | 2019-05-08 20:21 | EDPHYS ---
Physician Documentation [facility] Name: Thu Boyd Age: 68 yrs Sex: Female : 1950 Arrival Date: 05/08/2019 Time: 18:03 Bed 14 Private MD: ED Physician Teddy Ac HPI: 05/08 20:35 This 68 yrs old Female presents to ER via EMS with complaints of S/S of gs Possible Stroke. 20:35 The patient's problem is reported as altered mental status, weakness, in the right gs upper extremity, in the right lower extremity. Onset: The symptoms/episode began/occurred at 17:00. Duration: The episode is continuous. Context: the episode(s) was witnessed, by a significant other, occurred at home, SEIZURE ACTIVITY. The symptoms are alleviated by nothing. The symptoms are aggravated by nothing. Associated signs and symptoms: Pertinent negatives: abdominal pain. Severity of symptoms: At their worst the symptoms were severe in the emergency department the symptoms have improved mildly. The patient has experienced a previous episode. Historical: - Allergies: 18:18 No Known Allergies; ss - Home Meds: 18:18 Prozac Oral [Active]; Eliquis Oral [Active]; "mild statin" [Active]; bp - PMHx: 18:18 DYSPHAGIA; Hyperlipidemia; Hypertension; stroke in 2018; Aphasia; ss - Immunization history:: Adult Immunizations up to date. - Social history:: Smoking status: Patient/guardian denies using tobacco, but has a distant history of tobacco abuse. - Ebola Screening: : Patient denies exposure to infectious person Patient denies travel to an Ebola-affected area in the 21 days before illness onset. ROS: 20:35 All other systems are negative. gs Exam: 20:35 Head/Face: Normocephalic, atraumatic. Eyes: Pupils equal round and reactive to light, gs extra-ocular motions intact. Lids and lashes normal. Conjunctiva and sclera are non-icteric and not injected. Cornea within normal limits. Periorbital areas with no swelling, redness, or edema. ENT: Nares patent. No nasal discharge, no septal abnormalities noted. Tympanic membranes are normal and external auditory canals are clear. Oropharynx with no redness, swelling, or masses, exudates, or evidence of obstruction, uvula midline. Mucous membranes moist. Neck: Trachea midline, no thyromegaly or masses palpated, and no cervical lymphadenopathy. Supple, full range of motion without nuchal rigidity, or vertebral point tenderness. No Meningismus. Chest/axilla: Normal chest wall appearance and motion. Nontender with no deformity. No lesions are appreciated. Cardiovascular: Regular rate and rhythm with a normal S1 and S2. No gallops, murmurs, or rubs. Normal PMI, no JVD. No pulse deficits. Respiratory: Lungs have equal breath sounds bilaterally, clear to auscultation and percussion. No rales, rhonchi or wheezes noted. No increased work of breathing, no retractions or nasal flaring. Abdomen/GI: Soft, non-tender, with normal bowel sounds. No distension or tympany. No guarding or rebound. No evidence of tenderness throughout. Back: No spinal tenderness. No costovertebral tenderness. Full range of motion. Skin: Warm, dry with normal turgor. Normal color with no rashes, no lesions, and no evidence of cellulitis. MS/ Extremity: Pulses equal, no cyanosis. Neurovascular intact. Full, normal range of motion. 20:35 Constitutional: The patient appears alert, awake. 20:35 Neuro: Cranial nerves: grossly normal, Motor: strength is 5/5 in the left arm and left leg, Strength is 2/5 in the right arm and right leg, Sensation: no acute changes. 20:59 ECG was reviewed by the Attending Physician. Vital Signs: 18:03 BP 158 / 91; Pulse 87; Resp 18; Temp 97.7(TE); Pulse Ox 95% on R/A; Weight 81.65 kg; ss Height 5 ft. 2 in. (157.48 cm); 18:53 BP 184 / 115; Pulse 83; Resp 19; Pulse Ox 100% on 15% Non-rebreather mask; bp 19:27 BP 158 / 80; Pulse 72; Resp 17 S; Pulse Ox 100% on 15% Non-rebreather mask; jd3 19:58 BP 157 / 71; Pulse 71; Resp 17 S; Pulse Ox 99% on 2 lpm NC; jd3 21:00 BP 143 / 73; Pulse 71; Resp 17 S; Pulse Ox 97% on 2 lpm NC; jd3 18:03 Body Mass Index 32.92 (81.65 kg, 157.48 cm) NIH Stroke Scale Scores: 17:45 NIHSS Score: 15 ss 18:24 NIHSS Score: 19 [place] Com[place] Score: 19:25 Eye Response: to pain(2). Verbal Response: inappropriate words(3). Motor Response: jd3 localizes pain(5). Total: 10. 19:58 Eye Response: to voice(3). Verbal Response: inappropriate words(3). Motor Response: jd3 localizes pain(5). Total: 11. 21:00 Eye Response: to voice(3). Verbal Response: inappropriate words(3). Motor Response: jd3 localizes pain(5). Total: 11. MDM: 18:07 Patient medically screened. 20:35 Differential diagnosis: CVA, TIA, metabolic disorder, drug effects, sz. Data reviewed: vital signs, nurses notes, old medical records, lab test result(s), EKG, radiologic studies. Counseling: I had a detailed discussion with the patient and/or guardian regarding: the historical points, exam findings, and any diagnostic results supporting the discharge/admit diagnosis, the need to transfer to another facility. Response to treatment: the patient's symptoms have markedly improved after treatment. 20:46 ED course: NO TPA CONTRAINDICATED ON ELIQUIS AGREED BY DR VILLALOBOS, SP SZ LOADED WITH MALACHI, PLAN TRANSFER. 05/08 18:04 Order name: Troponin (emerg Dept Use Only); Complete Time: 19:34 bp 08 18:04 Order name: Basic Metabolic Panel; Complete Time: 19:34 bp 08 18:04 Order name: CBC with Diff; Complete Time: 18:27 bp 08 18:04 Order name: Protime (+inr); Complete Time: 18:27 bp 08 18:04 Order name: Ptt, Activated; Complete Time: 18:27 bp 08 18:04 Order name: CT Stroke Brain w/o Contrast; Complete Time: 18:27 bp 08 18:04 Order name: Stroke CXR 1 View; Complete Time: 20:06 bp 08 18:04 Order name: EKG; Complete Time: 18:06 bp 08 18:04 Order name: Accucheck; Complete Time: 18:18 bp 08 18:46 Order name: Head angio; Complete Time: 20:06 EDMS 05/08 18:47 Order name: Neck Angio; Complete Time: 20:06 EDMS 05/08 18:04 Order name: Cardiac monitoring; Complete Time: 18:18 bp 05/08 18:04 Order name: EKG - Nurse/Tech; Complete Time: 18:18 bp 05/08 18:04 Order name: IV Saline Lock; Complete Time: 18:19 bp 05/08 18:04 Order name: Labs collected and sent; Complete Time: 18:19 bp 05/08 18:04 Order name: NPO; Complete Time: 18:19 bp 05/08 18:04 Order name: O2 Per Protocol; Complete Time: 18:19 bp 05/08 18:04 Order name: O2 Sat Monitoring; Complete Time: 18:19 bp 05/08 18:04 Order name: Stroke Swallow Screen; Complete Time: 18:34 bp EC:59 Rate is 84 beats/min. Rhythm is regular. ID interval is prolonged. QRS interval is gs normal. QT interval is normal. T waves are Flattened. Clinical impression: NSR w/ Non-specific ST/T Changes. Interpreted by me. Administered Medications: 18:30 Drug: Ativan 1 mg Route: IVP; Site: right forearm; ss 18:44 Follow up: Response: Marked relief of symptoms bp 18:48 Drug: Keppra 1000 mg Route: IV; Rate: calculated rate; Site: right forearm; aj 19:11 Follow up: Response: No adverse reaction; IV Status: Completed infusion jd3 19:37 Drug: Ativan 1 mg Route: IVP; Site: left antecubital; jd3 20:10 Follow up: Response: No adverse reaction jd3 Point of Care Testing: Blood Glucose: 18:03 Blood Glucose: 145 mg/dL; ss Ranges: Critical Glucose Levels:Adult <50 mg/dl or >400 mg/dl <40 mg/dl or >180 mg/dl Disposition: 05/08/19 20:19 Transfer ordered to [facility]. Diagnosis are Epilepsy and recurrent seizures, Cerebral infarction. - Reason for transfer: Higher level of care. - Accepting physician is CHANELL. - Condition is Stable. - Problem is new. - Symptoms have improved. Critical care time excluding procedures: 20:46 Critical care time: Bedside Care: 10 minutes, Consultation: 10 minutes, Family gs Intervention: 10 minutes. Total time: 30 minutes NIH Stroke Scale - NIH Stroke Score Date: 05/08/2019 Time: 17:45 Total Score = 15 1a. Level of Consciousness (LOC) - 1(Not Alert) 1b. Level of Consciousness (LOC) (Year \\T\\ Age) - 2(Neither) 1c. LOC Commands (Open \\T\\ Closes Eyes/Professor/Nurse Anesthetist) - 0(Both) 2. Best Gaze (Lateral Gaze Paresis) - 1(Partial gaze palsy) 3. Visual Field Loss - 0(No visual loss) 4. Facial Palsy - 1(Minor Paralysis) 5a. Left Arm: Motor (10-second hold) - 0(No drift) 5b. Right Arm: Motor (10-second hold) - 3(No effort against gravity) 6a. Left Leg: Motor (5-second hold - always test supine) - 0(No drift) 6b. Right Leg: Motor (5-second hold - always test supine) - 2(Drift, some effort against gravity) 7. Limb Ataxia (finger/nose \\T\\ heel/sevilla - test with eyes open) - 0(Absent) 8. Sensory Loss (pinprick arms/legs/face) - 1(Mild to moderate loss) 9. Best Language: Aphasia (description/naming/reading) - 2(Severe aphasia) 10. Dysarthria (speech clarity - read or repeat words) - 2(Severe) 11. Extinction and Inattention (visual/tactile/auditory/spatial/personal) - 0(No abnormality) Initials: NIH Stroke Scale - NIH Stroke Score Date: 05/08/2019 Time: 18:24 Total Score = 19 1a. Level of Consciousness (LOC) - 1(Not Alert) 1b. Level of Consciousness (LOC) (Year \\T\\ Age) - 2(Neither) 1c. LOC Commands (Open \\T\\ Closes Eyes/Professor/Nurse Anesthetist) - 2(Neither) 2. Best Gaze (Lateral Gaze Paresis) - 0(Normal) 3. Visual Field Loss - 0(No visual loss) 4. Facial Palsy - 1(Minor Paralysis) 5a. Left Arm: Motor (10-second hold) - 1(Drift) 5b. Right Arm: Motor (10-second hold) - 2(Drift, some effort against gravity) 6a. Left Leg: Motor (5-second hold - always test supine) - 2(Drift, some effort against gravity) 6b. Right Leg: Motor (5-second hold - always test supine) - 3(No effort against gravity) 7. Limb Ataxia (finger/nose \\T\\ heel/sevilla - test with eyes open) - 1(Present in one limb) 8. Sensory Loss (pinprick arms/legs/face) - 0(Normal) 9. Best Language: Aphasia (description/naming/reading) - 2(Severe aphasia) 10. Dysarthria (speech clarity - read or repeat words) - 2(Severe) 11. Extinction and Inattention (visual/tactile/auditory/spatial/personal) - 0(No abnormality) Initials: Signatures: Dispatcher [employer] EDMaye Navarro RN RN Staci Plata RN RN ss Teddy Ac MD MD gs Davies, Jonathon, RN RN jMookie Ma RN RN bp Corrections: (The following items were deleted from the chart) 21:03 20:19 05/08/2019 20:19 Transfer ordered to [facility]. jd3 Diagnosis is Epilepsy and recurrent seizures; Cerebral infarction. Reason for transfer: Higher level of care. Accepting physician is CHANELL. Condition is Stable. Problem is new. Symptoms have improved. gs
--- NOTE | 2019-05-09 08:13 | EKG ---
Test Date: 2019-05-08 Test Time: 18:12:08 Data Conversion Analyst: MARTHA MEASUREMENT RESULTS: Intervals: Rate: 84 MN: 204 QRSD: 88 QT: 370 QTc: 437 [place]: P: 32 MN: 204 QRS: 53 T: 31 INTERPRETIVE STATEMENTS: Normal sinus rhythm Cannot rule out Anterior infarct, age undetermined Abnormal ECG Compared to ECG 05/05/2019 19:14:48 Myocardial infarct finding now present Sinus arrhythmia no longer present Electronically Signed On 05-09-19 08:11:37 CDT by Bryson Cuellar
== END 2019-05-08 21:03 | disposition short-term general hospital (02) ==
LOC: ER 17:50
DX: I63.9 Cerebral infarction, unspecified (principal); G40.802 Other epilepsy, not intractable, without status epilepticus; I10 Essential (primary) hypertension; R29.719 NIHSS score 19; E78.5 Hyperlipidemia, unspecified; Z79.01 Long term (current) use of anticoagulants; Z86.73 Personal history of transient ischemic attack (TIA), and cerebral infarction without residual deficits
CPT/HCPCS: 93005; 85025; 80048; 36415; 85610; 85730; 84484; 70496; 70498; 70450; 71045; Q9967; J1953; 82962; 99285